=== PATIENT | male | born 1945 | race Caucasian/White ===

== ENCOUNTER 2022-09-28 10:09 | Outpatient (REF) | payer SELFPAY ==
[2022-09-28 13:53] LABS: Alanine Aminotransferase 39 U/L (0-40); Albumin Level 4.1 g/dL (3.5-5.0); Alkaline Phosphatase 80 U/L (39-117); Anion Gap 10 (12-20); Aspartate Amino Transferase 30 U/L (5-37); Blood Urea Nitrogen 16 mg/dL (9-16); Calcium 9.4 mg/dL (8.4-10.2); Carbon Dioxide 28 mmol/L (22-29); Chloride 105 mmol/L (96-108); Cholesterol 166 mg/dL; Estimated Glomerular Filt Rate > 60; Glucose Random 134 mg/dL (60-115); HDL Cholesterol 53 mg/dL; LDL Cholesterol Calculated 102 mg/dl; Potassium 4.1 mmol/L (3.3-5.1); Sodium 139 mmol/L (135-145); Total Protein 7.1 g/dL (6.5-8.0); Triglycerides 56 mg/dL
== END 2022-09-28 10:10 | disposition home or self-care (01) ==
LOC: HO.HHCL 10:09
PROVIDERS: Visit Provider Internal Medicine Geriatric Medicine
DX: E11.69 Type 2 diabetes mellitus with other specified complication (principal)
CPT/HCPCS: 36415; 80053; 80061

== ENCOUNTER 2022-12-07 10:21 | Outpatient (REF) | payer OTHER, SELFPAY ==
[2022-12-07 13:06] LABS: Microalbum/Creatinine Ratio Ur 1138.1 ug/mg cr (<30)
== END 2022-12-07 10:22 | disposition home or self-care (01) ==
LOC: HO.HHCL 10:21
PROVIDERS: Visit Provider Internal Medicine Geriatric Medicine
DX: E11.69 Type 2 diabetes mellitus with other specified complication (principal)
CPT/HCPCS: 82043; 82570

== ENCOUNTER 2022-12-11 11:26 | Outpatient (REF) | payer OTHER, SELFPAY ==
[2022-12-11 13:58] LABS: Creatinine Urine 62.19 mg/dL; Microalbum/Creatinine Ratio Ur 522.5 ug/mg cr (<30)
== END 2022-12-11 11:27 | disposition home or self-care (01) ==
LOC: HO.HHCL 11:26
PROVIDERS: Visit Provider Internal Medicine Geriatric Medicine
DX: R80.9 Proteinuria, unspecified (principal)
CPT/HCPCS: 82043; 82570

== ENCOUNTER 2023-11-21 08:11 | Outpatient (REF) | payer OTHER, SELFPAY ==
[2023-11-21 11:02] LABS: MANUAL DIFF FLAG NO
[2023-11-21 11:14] LABS: Basophils Absolute Auto 0.1 X10*3/uL (0.0-0.2); Basophils Percent Auto 0.9 % (0-2); Eosinophils Absolute Auto 0.2 X10*3/uL (0.0-0.4); Eosinophils Percent Auto 2.7 % (0-4); Hematocrit 42.8 % (42.0-52.0); Hemoglobin 14.2 g/dl (14.0-18.0); Imm Gran Abs Auto 0.01 X10*3/uL (0.00-0.03); Imm Gran Pct Auto 0.2 % (0.0-0.4); Lymphocytes Absolute Auto 1.5 X10*3/uL (1.2-4.9); Lymphocytes Percent Auto 26.5 % (20-40); Mean Corpuscular HGB Conc 33.2 g/dl (31.0-36.0); Mean Corpuscular Hemoglobin 31.9 pg (27.0-33.0); Mean Corpuscular Volume 96.2 fL (80.0-98.0); Mean Platelet Volume 12.3 fL (9.4-12.4); Monocytes Absolute Auto 0.5 X10*3/uL (0.1-1.2); Monocytes Percent Auto 9.5 % (2-11); Neutrophils Absolute Auto 3.3 x10*3/uL (2.0-8.3); Neutrophils Percent Auto 60.2 % (45-73); Platelet Count 157 X10*3/uL (160-400); Red Blood Count 4.45 X10*6/uL (4.60-5.80); Red Cell Distribution Width 13.1 % (11.0-16.0); White Blood Count 5.5 X10*3/uL (4.8-10.8)
[2023-11-21 11:53] LABS: Alanine Aminotransferase 33 U/L (0-40); Albumin Level 3.9 g/dL (3.5-5.0); Alkaline Phosphatase 74 U/L (39-117); Anion Gap 11 (12-20); Aspartate Amino Transferase 37 U/L (5-37); Bilirubin Total 0.9 mg/dL (0.0-1.0); Blood Urea Nitrogen 14 mg/dL (9-16); Calcium 9.4 mg/dL (8.4-10.2); Carbon Dioxide 28 mmol/L (22-29); Chloride 104 mmol/L (96-108); Cholesterol 190 mg/dL (<200); Estimated Glomerular Filt Rate > 60; Glucose Random 141 mg/dL (60-115); HDL Cholesterol 55 mg/dL (>40); LDL Cholesterol Calculated 118 mg/dL (<100); Potassium 4.1 mmol/L (3.3-5.1); Sodium 139 mmol/L (135-145); Total Protein 6.9 g/dL (6.5-8.0); Triglycerides 87 mg/dL (<150)
[2023-11-21 11:58] LABS: Creatinine Urine 73.42 mg/dL; Microalbum/Creatinine Ratio Ur 370.4 ug/mg cr (<30)
[2023-11-21 12:04] LABS: Vitamin B12 801 pg/mL (200-900)
== END 2023-11-21 08:12 | disposition home or self-care (01) ==
LOC: HO.HHCL 08:11
PROVIDERS: Visit Provider Internal Medicine Geriatric Medicine
DX: E11.69 Type 2 diabetes mellitus with other specified complication (principal); G30.9 Alzheimer's disease, unspecified; F02.80 Dementia in other diseases classified elsewhere, unspecified severity, without behavioral disturbance, psychotic disturbance, mood disturbance, and anxiety; R41.3 Other amnesia; I10 Essential (primary) hypertension; Z79.4 Long term (current) use of insulin
CPT/HCPCS: 36415; 80053; 80061; 82043; 82570; 82607; 85025

== ENCOUNTER 2024-02-29 08:26 | Outpatient (REF) | payer OTHER, SELFPAY ==
[2024-02-29 11:13] LABS: Anion Gap 11 (12-20); Blood Urea Nitrogen 14 mg/dL (9-16); Calcium 9.2 mg/dL (8.4-10.2); Carbon Dioxide 28 mmol/L (22-29); Chloride 105 mmol/L (96-108); Estimated Glomerular Filt Rate > 60; Glucose Random 126 mg/dL (60-115); Sodium 140 mmol/L (135-145)
== END 2024-02-29 08:27 | disposition home or self-care (01) ==
LOC: HO.HHCL 08:26
PROVIDERS: Visit Provider Internal Medicine Geriatric Medicine
DX: E11.69 Type 2 diabetes mellitus with other specified complication (principal); E11.29 Type 2 diabetes mellitus with other diabetic kidney complication; R80.9 Proteinuria, unspecified
CPT/HCPCS: 36415; 80048

== ENCOUNTER 2024-06-13 08:27 | Outpatient (REF) | payer OTHER, SELFPAY ==
[2024-06-13 12:18] LABS: ~HepC Num1 0.08 S/CO (0.00-0.79); ~Hepatitis C Antibody Nonreactive (Nonreactive)
== END 2024-06-13 08:28 | disposition home or self-care (01) ==
LOC: HO.HHCL 08:27
PROVIDERS: Visit Provider Internal Medicine Geriatric Medicine
DX: Z11.59 Encounter for screening for other viral diseases (principal)
CPT/HCPCS: 36415; 86803

== ENCOUNTER 2024-10-14 08:07 | Outpatient (REF) | payer OTHER, SELFPAY ==
--- OUTSIDE RECORDS SUMMARY | 2024-04-21 05:45 | XMS_ITS ---
Author Organization [facility] Address [address] [place] [id number] Care Team Providers Care Dogman/Woman Name Role Phone Name Rustam MELGAR Primary Care Provider Unavailabl Rickey Ruffin Unavailable [phone] Encounters Encounter Location Date Provider Diagnosis [address] [phone] 04/21/2024 Rickey Steni Plan Of Treatment Next Appt Details Provider Name:Rickey Stein , 11/05/2024 09:00:00 AM, [address] [place] [address], [phone], Progress Notes * ANDREWJAYNARobi LDOB:01/1946 (78 yo M)Acc No.[id number]:04/21/2024 Progress Note Patient: Robi PADGETT Provider: Curt Stein DPM :1945 A ge:78 Y S ex:Male Date:04/21/2024 Address:[address] [place] [address] [address], [phone] Pcp:Rustam Ace MD Subjective: * Chief Complaints: * * Medical History: Objective: * Vitals: Assessment: Plan: * Treatment: * Images: * The named appointment provid er may or may not be the originator of this progress note, and it is not deemed complete until electronically signed by the appointment provider. Sign off status: Pending * Provider: Curt Stein DPM Date: 0 04/21/2024 Generated for [place] on: 0 10/14/2024 08:11 AM EDT
--- OUTSIDE RECORDS SUMMARY | 2024-10-14 08:11 | XMS_ITS | Data Portability ---
Author Organization [facility] Address [address] [place] [phone] Care Team Providers Care Research Affiliate Name Role Phone [facility] OTHER Assessment No assessment recorded. Plan of Treatment Reminders Order Date Submit Date Provider Last Modified By Organization Details Last Modified Time Details Appointments None record ed. Lab None record ed. Referral None record ed. Procedures None record ed. Surgeries None record ed. Imaging None record ed. Medication Orders None record ed. Patient TargetsNo targets recorded. Patient InstructionsNo instructions recorded. Reason for Referral None Reported. Medical Equipment None Reported. Medications Name Sig Start Date Stop Date Status Note LastModified by Organization Details LastModified Time medbox status USE DIRECTED active Not Available Not Available No t Available losartan 50 mg tablet TAKE 1 TABLET BY MOUTH EVERY MORNING active Not Available Not Available No t Available pioglitazone 15 mg tablet TAKE 1 TABLET BY MOUTH EVERY MORNING active Not Available Not Available No t Available atorvastatin 80 mg tablet TAKE 1 TABLET BY MOUTH EVERY MORNING active Not Available Not Available No t Available triamcinolon e acetonide 0.5 % topical cream APPLY TOPICALLY TO AFFECTED AREA(S) TWICE DAILY active Not Available Not Available Not Available benzonatate 200 mg capsule TAKE 1 CAPSULE BY MOUTH THREE TIMES DAILY NEEDED FOR COUGH DO NOT BREAK, CRUSH, DISSOLVE OR CHEW active Not Available Not Available No t Available glipizide ER 10 mg tablet, extended release 24 hr TAKE 1 TABLET BY MOUTH TWICE DAILY IN THE MORNING AND IN THE EVENING BEFORE MEALS active Not Available Not Available No t Available glipizide 10 mg tablet TAKE 1 TABLET BY MOUTH EVERY EVENING WITH DINNER active Not Available Not Available Not Available omeprazole 40 mg capsule,elder yed release TAKE 1 CAPSULE BY MOUTH EVERY MORNING BEFORE BREAKFAST active Not Available Not Available No t Available aspirin 81 mg tablet,delay ed release TAKE 1 TABLET BY MOUTH EVERY MORNING active Not Available Not Available No t Available tamsulosin 0.4 mg capsule TAKE 1 CAPSULE BY MOUTH EVERY MORNING (30 MINUTES AFTER BREAKFAST) active Not Available Not Available N ot Available pioglitazone 30 mg tablet TAKE 1 TABLET BY MOUTH EVERY MORNING active Not Available Not Available No t Available metformin ER 500 mg tablet,exten ded release 24 hr TAKE 2 TABLETS BY MOUTH ONCE DAILY IN THE MORNING WITH BREAKFAST active Not Available Not Available No t Available ciclopirox 0.77 % topical cream APPLY TOPICALLY TO THE AFFECTED AREA TWICE DAILY active Not Available Not Available No t Available blood pressure test kit-large cuff USE TO CHECK BLOOD PRESSURE ONCE DAILY active Not Available Not Available N ot Available UltiCare Pen Needle 32 gauge x /32 USE DIRECTED TO INJECT INSULIN ONCE DAILY active Not Available Not Available N ot Available Jardiance 25 mg tablet TAKE 1 TABLET BY MOUTH EVERY MORNING active Not Available Not Available No t Available Trulicity 1.5 mg/0.5 mL subcutaneous pen injector INJECT ONE PEN (=1.5MG) SUBCUTANEOU SLY ONCE A WEEK DIRECTED active Not Available Not Available No t Available Trulicity 0.75 mg/0.5 mL subcutaneous pen injector INJECT ONE PEN (=0.75MG) SUBCUTANEOU SLY ONCE A WEEK DIRECTED active Not Available Not Available No t Available Tresiba FlexTouch U-100 insulin 100 unit/mL (3 mL) subcutaneous pen INJECT 10 UNITS SUBCUTANEOU SLY EVERY MORNING active Not Available Not Available No t Available FreeStyle Precision Boris Strips USE DIRECTED TO TEST BLOOD SUGAR UP TO TWICE DAILY DIRECTED active Not Available Not Available Not Available Synjardy XR 25 mg-1,000 mg tablet, extended release TAKE 1 TABLET BY MOUTH EVERY MORNING WITH BREAKFAST active Not Available Not Available No t Available OneTouch Ultra2 Meter TEST BLOOD SUGAR DIRECTED active Not Available Not Available No t Available OneTouch Delica Plus Lancet 33 gauge USE TWICE DAILY TO CHECK BLOOD SUGAR active Not Available Not Available No t Available FreeStyle Carine 2 Sensor kit USE DIRECTED TO TEST BLOOD SUGAR. CHANGE EVERY 14 DAYS . active Not Available Not Available No t Available FreeStyle Carine 2 Midkiff USE DIRECTED TO TEST BLOOD SUGAR AT LEAST EVERY 8 HOURS DIRECTED active Not Available Not Available No t Available Vitals Date Recorded Oxygen saturation Oxygen saturation in Arterial blood by Pulse oximetry Body temperature Body weight Heart rate Respiratory rate Systolic And Diastolic Provider Name and Address Organization Details Last Updated DateTime 4 98 % 98 % 98.2 [degF] 57205.7 2 g 66 /min 16 /min 164/78 mm[Hg] Not Available [facility] - production 4 20:00:44 Social History None recorded. Functional Status None recorded. Mental Status None recorded. Family History Nothing Reported. Medical History No medical history recorded. Past Encounters Encounter ID Performer Location Encounter Start Date Encounter Closed Date Diagnosis/Indication Diagnosis SNOMED-CT Code Diagnosis ICD10 Code Diagnosis Note [id number] LIGIA SINGLETARY MD Main - [facility] [address] [place] [phone] 09/05/2023 20:00:42 09/05/2023 21:28:38 Pain of head and neck region 412318738 M54.2 Evaluation in the field was performed by my directional survey drafter colleague, as noted above, I provided real-time direction and supervisio n for this visit. The evaluation revealed 77 year old man with hx of PAD s/p endarterec john on the right side 3 years ago with complains of right sided head pain that radiates down down to shoulder pain for almost 1 week but worse in the last 2 days . Exacerbate d by movement and positional changes. Family gave Tylenol with no help . Unable to sleep last night. Denies any trauma . Reports similar pain in the past prior to surgery. Denies fever, chills, blurred vision dizziness , syncope .BP with mild elevation 164/78 Exam with tenderness to palpation over and behind the right ear and down the neck to the clavicle area . No tenderness to palpation on the right temporal area. Impression :Right sided headache with radiation to the neck Plan:Given presentati on similar to prior episode that required endarterec john, pt and family was recommende d ED visit for possible MRA of CTA of the head and neck to r/o restenosis .Given his age and presentati on giant cell arteritis is high in the differenti al as well especially given the distributi on of the pain , he will need ESR and CRP , that can not be done by us.[facility]. Will go to [facility] where the first surgery was done. Expect called to the ED Primary care, consider__ _ Dispositio n:We discussed the situation and I recommende d referral to the emergency department . Health Concerns Section Related Observation LastModified by Organization Detai ls LastModified Time None Recorded Concern Status LastModified by Organization Details LastModified Time None Recorded Advance Directives Directive None Recorded Payers Insurance Date Sequence Insurance Name Policy Number Policy Arndt Covered Member ID Arndt Member ID Guarantor Name 09/05/2023 1 [facility] - DOS ON OR AFTER 2022 - DUAL ELIGIBLE - PRISON OPTIONS AND ONE CARE (MEDICARE REPLACEMENT/ADV ANTAGE - HMO) Robi Lewis [id number] Robi Lewis
--- OUTSIDE RECORDS SUMMARY | 2024-10-14 08:11 | XMS_ITS | Clinical Summary ---
Author Organization [employer] Address [address] [place] [address] [address] [place] [address] Care Team Providers Care Mold Sheet Cleaner Name Role Phone Name, Rustam MELGAR Primary Care Provider [phone] Allergies No known active allergies Medications cholecalciferol (Vitamin D-3) 25 MCG (1000 UT) capsule Take 1,000 Units by mouth Once per day. Take 1 capsule daily (OTC) Active Blood Pressure kit Use once a day 1 kit 02/02/20 23 Active losartan (Cozaar) 100 MG tablet Take 1 tablet (100 mg) by mouth Once per day. 30 tablet 11 01/07/20 24 025 Active omeprazole (PriLOSEC) [address] capsuleIndication s:Essential hypertension TAKE 1 CAPSULE BY MOUTH EVERY MORNING BEFORE BREAKFAST. 90 capsule 1 06/03/19 25 Active tamsulosin (Flomax) 0.4 MG 24 hr capsuleIndication s:Essential hypertension TAKE 1 CAPSULE BY MOUTH EVERY MORNING (30 MINUTES AFTER BREAKFAST) 90 capsule 1 07/02/19 25 Active OneTouch Delica Lancets 33G miscIndications:T ype 2 diabetes mellitus with other specified complication, without long-term current use of insulin (CMS/[facility]) Use to check BG twice daily 100 each 5 07/19/19 25 Active aspirin (Aspirin Low Dose) 81 MG EC tabletIndications :Type 2 diabetes mellitus with other specified complication, without long-term current use of insulin (CMS/HCC),Hyperli pidemia, unspecified hyperlipidemia type Take 1 tablet (81 mg) by mouth in the morning. 30 tablet 11 08/26/19 25 Active atorvastatin (Lipitor) 80 MG tabletIndications :Type 2 diabetes mellitus with other specified complication, without long-term current use of insulin (CMS/HCC),Hyperli pidemia, unspecified hyperlipidemia type Take 1 tablet (80 mg) by mouth in the morning. 90 tablet 3 08/26/19 25 Active Continuous Glucose Sensor (FreeStyle Carine 3 Plus Sensor) miscIndications:T ype 2 diabetes mellitus with other specified complication, without long-term current use of insulin (CMS/HCC) Apply 1 every 15 days as directed for CGM 2 each 08/26/19 25 Active ezetimibe (Zetia) 10 MG tabletIndications :Type 2 diabetes mellitus with other specified complication, without long-term current use of insulin (CMS/HCC),Hyperli pidemia, unspecified hyperlipidemia type Take 1 tablet (10 mg) by mouth Once per day. 30 tablet 08/26/19 25 026 Active glucose blood (FreeStyle Precision Boris Test) test stripIndications: Type 2 diabetes mellitus with other specified complication, without long-term current use of insulin ([facility]) Use to test blood sugar up to 2 times daily, as directed 50 each 08/26/19 25 Active empagliflozin-met FORMIN ER (Synjardy XR) 25-1000 MG 24 hr tabletIndications :Type 2 diabetes mellitus with other specified complication, without long-term current use of insulin ([facility]) Take 1 tablet by mouth with breakfast. 30 tablet 08/26/19 25 Active Tirzepatide (Mounjaro) 7.5 MG/0.5ML solution auto-injectorIndi cations:Type 2 diabetes mellitus with other specified complication, without long-term current use of insulin ([facility]) Inject 7.5 mg under the skin 1 (one) time per week. 2 mL 08/26/19 25 Active Continuous Glucose Professor Of Art (FreeStyle Carine 3 [place]) deviceIndications :Type 2 diabetes mellitus with other specified complication, with long-term current use of insulin ([facility]) 1 each Once per day. Use as directed for CGM 1 each 10/01/19 25 Active donepezil (Aricept) 5 MG tablet TAKE 1 TABLET BY MOUTH AT BEDTIME 30 tablet 10/10/19 25 Active donepezil (Aricept) 5 MG tablet Take 1 tablet (5 mg) by mouth at bedtime. 30 tablet 09/27/19 24 025 Discontinued Continuous Glucose Professor Of Art (Sift Co.Style Carine 3 [place]) deviceIndications :Type 2 diabetes mellitus with other specified complication, with long-term current use of insulin ([facility]) 1 each Once per day. Use as directed for CGM 1 each 06/14/19 25 025 Discontinued(R eorder (will not trigger notification to Pharmacy)) acetaminophen (Tylenol Extra Strength) 500 MG tablet Take 1 tablet (500 mg) by mouth every 8 (eight) hours if needed for moderate pain. 90 tablet 09/04/19 25 025 Active Problems Problem Noted Date Diagnosed Date History of CVA (cerebrovascular accident) 2022 Osteoarthritis of right knee 03/24/2022 Chronic pain of right knee 03/24/2022 Bilateral cataracts 03/17/2022 Carotid atherosclerosis 03/17/2022 Chronic low back pain 03/17/2022 Essential hypertension 03/17/2022 History of cholecystectomy 03/17/2022 Alzheimer's disease 03/17/2022 Diabetes mellitus with proteinuria ([facility]/HCC) Hyperlipidemia 12/15/2020 Erectile dysfunction 01/09/2019 Thyroid nodule 01/20/2017 Overview (06/01/2022): FNA neg 08/03 Diabetic retinopathy 04/24/2016 Overview (06/01/2022): Injections Onychomycosis 04/20/2016 Pain in toe 04/20/2016 Peripheral nerve disease 04/20/2016 GERD (gastroesophageal reflux disease) 7 BPH (benign prostatic hyperplasia) 12/08/2015 Overview (06/01/2022): [facility] urology Carotid artery stenosis 12/08/2015 Overview (06/01/2022): S/p R CEA 02/02 Osteoarthritis 12/08/2015 Overview (06/01/2022): Lumbosacral Spine,L Shoulder, Hips,R Knee-f/u NEOS, rec TKR Encounters Date Type Department Care Team Description 10/09/2024 Refill [facility] [address] [facility] [place] [address] Rustam Ace MD 09/30/2024 Telephone [facility] [address] [place] [address] Danyell Gamble PharmD 09/03/2024 9:30 AM EDT Office Visit [facility] [address] [place] [address] Name, MD Rustam Type 2 diabetes mellitus with other specified complication, without long-term current use of insulin ([facility]) (Primary Dx); Primary osteoarthritis involving multiple joints; Decreased hearing of both ears 09/03/2024 Travel 09/02/2024 Telephone [facility] [address] [place] [address] Name, MD Rustam Chart Prep 08/25/2024 Travel 07/18/2024 Telephone [facility] [address] [place] [address] Danyell Gamble, PharmD 07/18/2024 Travel from Last 3 Months Immunizations Immunization Administration Dates Next Due Hep B, adult 09/06/2023,03/23/2023,02/23/2023 Influenza High-dose Quadriva lent Preservative Free 12/07/2022,01/06/2022,12/16/2020 Influenza Injectable Quadriv alant Preservative Free IIV4 MDCK 01/06/2019 Influenza injectable quadriv alent IIV4 with preservative 01/31/2016 Influenza injectable quadriv alent preservative free 01/02/2020 Influenza, High Dose Seasona l, Preservative Free 01/07/2024,11/30/2017,12/13/2016,2015 Pfizer Covid-19 Vaccine 12+ 01/07/2024,,04/21/2020 Pneumococcal Conjugate PCV 20 09/28/2022 RSV Bivalent 02/14/2023 Tdap 06/01/2022 Zoster, Recombinant 09/28/2022,06/01/2022 Social History Tobacco Use Types Packs/Day Years Used Date Smoking Tobacco: Never Smokeless Tobacco: Never Tobacco Cessation:Counseling Given: Not Answered Alcohol Use Standard Drinks/Week Comments Never 0 (1 standard drink = 0.6 oz pur e alcohol) Alcohol Answer Date Recorded Frequency of Alcohol Consumption Not on file 09/27/2023 Average Number of Drinks Not on file 024 Frequency of Binge Drinking Not on file 09/16 Score 0 09/27/2023 Depression Answer Date Recorded Patient Health Questionnaire-9 Score 0 09/27/2023 Patient Health Questionnaire-9 Score 0 09/27/2023 Last PHQ-9: Questionnaire Data Not on file 0 09/27/2023 Housing Stability Answer Date Recorded What is your housing situation today? I have yamini ballesteros 09/03/[address] you li ve. Do you have problems with any of the following? None of the above 09/03/2024 Food Insecurity Answer Date Recorded Within the past 12 months, y ou worried that your food would run out before you got money to buy more: Never True 09/03/2024 Within the past 12 months,th e food you bought just didn't last and you didn't have enough money to get more: Never True Transportation Answer Date Recorded In the past 12 months, has l ack of transportation kept you from medical appts, meetings, work or from getting things needed for daily living? No 09/03/2024 Utilities Answer Date Recorded In the past 12 months, has t he electric, gas, oil or water company threatened to shut off services in your home? No 09/03/2024 Depression Answer Date Recorded Patient Health Questionnaire-2 Score 0 09/27/2023 Internet Access Answer Date Recorded Internet Access Q1 Yes 09/03/2024 Internet Access Q2 Not on file 09/03/2024 Sex and Gender Information Value Date Recorded Sex Assigned at Male 01/16/2022 10:37 AM EDT Legal Sex Male 10:37 AM EDT Gender Identity Male 01/16/2022 10:37 AM EDT Sexual Orientation Straight 01/16/2022 10 :37 AM EDT Last Filed Vital Signs Vital Sign Reading Time Taken Comments Blood Pressure 142/72 09/03/2024 9:31 AM EDT Pulse 60 09/03/2024 9:31 AM EDT Temperature 36.7 C (98 F) 09/03/2024 9:31 AM EDT Respiratory Rate 14 09/03/2024 9:31 AM EDT Oxygen Saturation 99% 09/03/2024 9:31 AM EDT Inhaled Oxygen Concentration - - Weight 71.4 kg (157 lb 6.4 oz) 09/03/2024 9:31 A M EDT Height 167.6 cm (5' 6 ) 09/03/2024 9:31 AM EDT Body Mass Index 25.41 09/03/2024 9:31 AM EDT Plan of Treatment Upcoming Encounters Date Type Department Care Team (Late st Contact Info) Description 12/16/2024 10:45 AM EDT Office Visit [facility] [address] [place], [place] [id number] Name, MD Rustam [address] [place] [address] Health Maintenance Due Date Last Done Comments Dental X-Ray: Bitewings 1945 Eye Exam 1954 Alcohol/Substance Use Screening 1956 Dental Oral Exam 04/04/2024 10/02/2023 Dental Prophylaxis 04/13/2024 10/11/2023 COVID-19 Vaccine ( season) 2024 01/07/2024, 02/23/2023, 02/15/2021, Additional history exists Depression Screening 09/26/2024 09/27/2023, 09/27/19 24 Influenza Vaccine (#1) 2024 , 12/07/2022, 01/06/2022, Additional history exists Lipid Panel 11/20/2024 11/21/2023, 09/16, 10/21/2021 Diabetes: Hemoglobin A1C 02/24/2025 025, 05/07/2024, 01/07/2024, Additional history exists Diabetes: Foot Exam 05/21/2025 05/21/2024, 05/21/2024, 05/21/2024, Additional history exists SDOH Screening 09/03/2025 09/03/2024 Tobacco Screening 09/03/2025 09/03/2024 Dental X-Ray: Full Mouth 10/02/2026 10/02/2023 DTaP/Tdap/Td Vaccines (2 - Td or Tdap) 06/01/2032 06/01/2022 Pneumococcal Vaccine: 50+ Years Completed 09/28/2022 Zoster Vaccines Completed 09/28/2022, 06/01/2022 RSV Patients and Patients Aged 60 years or older Completed 02/14/2023 Hepatitis B Vaccines Completed 09/06/2023, 03/23/2023, 02/23/2023 Hepatitis C Screening Completed 06/13/2024 HIB Vaccines Aged Out No longer eligi ble based on patient's age to complete this topic HPV Vaccines Aged Out No longer eligi ble based on patient's age to complete this topic Hepatitis A Vaccines Aged Out No long er eligible based on patient's age to complete this topic IPV Vaccines Aged Out No longer eligi ble based on patient's age to complete this topic Meningococcal B Vaccine Aged Out No l onger eligible based on patient's age to complete this topic Meningococcal Vaccine Aged Out No robert jacky eligible based on patient's age to complete this topic RSV under 20 months Aged Out No longe r eligible based on patient's age to complete this topic Rotavirus Vaccines Aged Out No longer eligible based on patient's age to complete this topic Goals Goal Patient Goal Type Associated Problems Recent Progress Patient-Stated? Author Hemoglobin A1c < 7.5 Result Component 6.2( 9:40 AM EDT) No Danyell Gamble, PharmD Record your blood sugar as directed Result Component No Danyell Gamble, PharmD Note: Use CGM, ensuring sensor is scanned at least once every 8 hours to capture 24H data. Check BG manually, as directed. Procedures Procedure Name Priority Date/Time Associated Diagnosis Comments POCT GLUCOSE Routine 09/03/2024 9:32 AM EDT Type 2 diabetes mellitus with other specified complication, without long-term current use of insulin ([facility]) POCT GLYCATED HEMOGLOBIN, TOTAL Routine 08/25/2024 9:40 AM EDT Type 2 diabetes mellitus with other specified complication, without long-term current use of insulin (CMS/HCC) HEPATITIS C AB W/REFL TO HCV RNA, QN, PCR Routine 06/13/2024 8:30 AM EDT Need for hepatitis C screening test LIPID PANEL, STANDARD Routine 11/21/2023 8:22 AM EDT Type 2 diabetes mellitus with other specified complication, without long-term current use of insulin (CMS/HCC) Essential hypertension PROPHYLAXIS - ADULT Routine 10/11/2023 8 :00 AM EDT PANORAMIC RADIOGRAPHIC IMAGE Routine 10/02/2023 8:00 AM EDT COMPREHENSIVE ORAL EVALUATION - NEW OR ESTABLISHED PATIENT Routine 10/02/2023 8:00 AM EDT from Last 3 Months or Most Recently Relevant to Health Maintenance Results * POCT Glucose (09/03/2024 9:32 AM EDT) Pathologist [facility] Glucose Blood, POC 160 60 - 200 mg/dL QC Media Lot # [id number] Lot# Expiration Date Blood Capillary blood specimen / Unknown 09/03/2024 9:32 AM EDT us Rustam Ace MD POINT OF CARE TEST ENTER/EDIT OR DERABLES Final Result * (ABNORMAL) POCT HGB A1C (08/25/2024 9:40 AM EDT) Hemoglobin A1C 6.2(A) 4.0 - 6.0 % QC Media Lot # [id number] Blood 08/25/2024 9:40 AM EDT us Rustam Ace MD POINT OF CARE TEST ENTER/EDIT OR DERABLES Final Result * Hepatitis C Antibody with Reflex to HCV, RNA, Quantitative, Real-Time PCR (06/13/2024 8:30 AM EDT) Hepatitis C Antibody Nonreactive Nonreactive [facility] Comment:Antibodies to HCV no t detected; does not exclude early acuteHCV infection. Blood Venous blood specimen / Unknown 06/13/2024 8:30 AM EDT 06/13/2024 11:24 AM EDT Rustam Ace MD LAB BLOOD ORDERABLES Final Resul t Performing Organization Address [facility] de Phone Number [facility] [address] [place] [phone] * (ABNORMAL) Lipid Panel, Standard (11/21/2023 8:22 AM EDT) Triglycerides 87 <150 mg/dL [facility] Comment:Desirable Triglyceri de: less than 150 mg/dLBorderline High Triglyceride 150-199 mg/dLHigh Triglyceride: 200-499 mg/dLVery High Triglyceride: greater than or equal to 5OO mg/dL Cholesterol 190 <200 mg/dL [facility] Comment:Desirable Cholestero l: less than 200 mg/dLBorderline High Cholesterol: 200-239 mg/dLHigh Cholesterol: greater than 239 mg/dL LDL Cholesterol Calculated 118(H) <100 mg/dL [facility] Comment:Desirable LDL: less than 100 mg/dLNear Optimal/Above Optimal LDL: 110- 129 mg/dLBorderline High LDL: 130-159 mg/dLHigh LDL: 160-189 mg/dLVery High LDL: greater than or equal to 190 mg/dL HDL Cholesterol 55 >40 mg/dL [facility] Comment:Desirable HDL: great er than 40 mg/dL Note: This HDL assay may give artificially low results in patients with liver disease. Blood Venous blood specimen / Unknown 11/21/2023 8:22 AM EDT 11/21/2023 10:56 AM EDT us Rustam Ace MD LAB BLOOD ORDERABLES Final Resul t Performing Organization Address [facility] [[email or web address]] Co de Phone Number [facility] [address] [place] [phone] from Last 3 Months or Most Recently Relevant to Health Maintenance Insurance [facility] [employer] (HMO D-SNP) [facility] Care Teams Mold Sheet Cleaner Relationship Specialty Start Date End Date Name, MD Rustam [address] [place] [phone] PCP - General Family Medicine 10/21/21
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
== END 2024-10-14 08:08 | disposition home or self-care (01) ==
LOC: HO.SH 08:07
PROVIDERS: Visit Provider Internal Medicine Geriatric Medicine
DX: Z01.118 Encounter for examination of ears and hearing with other abnormal findings (principal); H90.3 Sensorineural hearing loss, bilateral
CPT/HCPCS: 92557; 92567